=== PATIENT | male | born 1970 | race Two or more races ===

== ENCOUNTER 2023-01-24 12:41 | Emergency (ER) | payer OTHER ==
[2023-01-24 13:30] VITALS: BP 124/91; PULSE 81; RESP 16; TEMP 97.5; BMI 33.9
== END 2023-01-24 18:40 | disposition left against medical advice (07) ==
LOC: JER 12:41
DX: R10.33 Periumbilical pain (principal)
CPT/HCPCS: 99281-25

== ENCOUNTER 2023-07-08 08:30 | Emergency (ER) | payer OTHER ==
[2023-07-08 08:35] VITALS: BP 124/80; PULSE 63; RESP 18; TEMP 97.8; BMI 38.6
[2023-07-08] MEDS ORDERED: ACETAMINOPHEN 1000 MG/100 ML BAG IVPB ONE (09:01)
[2023-07-08 10:15] LABS: BASO % 0.3 % (0-2.0); EOS % 3.1 % (0-4.5); HEMATOCRIT 45.7 % (35.4-49); HEMOGLOBIN 15.7 GM/dL (11.7-16.9); LYMPH % 29.8 % (8-40); MCH 28.7 pg (25.7-33.7); MCHC 34.3 g/dl (32.0-35.9); MEAN CELL VOLUME 83.8 fl (80-96); MEAN PLT VOLUME 9.5 fl (7.5-11.1); MONO % 7.4 % (3.8-10.2); NEUT % 59.4 % (42.8-82.8); PLATELET COUNT 208 10^3/uL (134-434); RBC 5.46 M/mm3 (4.00-5.60); RDW 13.5 % (11.9-15.9); WHITE BLOOD COUNT 6.6 K/mm3 (4.0-10.0)
[2023-07-08 10:30] LABS: INR 1.04 (0.83-1.09); PROTHROMBIN TIME (PATIENT) 12.1 SEC (9.7-13.0)
[2023-07-08 10:33] LABS: ACTIVATED PTT 31.1 SECONDS (25.2-36.5)
[2023-07-08 10:40] LABS: POTASSIUM 4.6 mmol/L (3.5-5.1)
[2023-07-08 11:13] LABS: ALBUMIN 3.3 g/dl (3.4-5.0); BILIRUBIN,TOTAL 0.4 mg/dL (0.2-1); BLOOD UREA NITROGEN 8.9 mg/dL (7-18); CALCIUM 8.3 mg/dL (8.5-10.1); CREATININE 0.7 mg/dL (0.55-1.3); TOT PROT 6.9 g/dl (6.4-8.2)
== END 2023-07-08 13:55 | disposition home or self-care (01) ==
LOC: JER 08:30
DX: R10.84 Generalized abdominal pain (principal); R11.2 Nausea with vomiting, unspecified; K42.9 Umbilical hernia without obstruction or gangrene
CPT/HCPCS: 36415; 74177-TC; 80053; 83605; 85025; 85610; 85730; 86850; 86900; 86901; 93005; 93010; 99284-25; Q9967

== ENCOUNTER 2023-07-25 03:59 | Day surgery (SDC) | payer OTHER ==
[2023-07-22 09:30] VITALS: BMI 38.7
[2023-07-25] MEDS ORDERED: BUPIVACAINE HCL/PF 0.5% (5MG/ML) 10 ML VIAL ONE (14:45)
[2023-07-25] MEDS ORDERED: LIDOCAINE HCL/PF 2% SDV 5ML VIAL ONE (14:55)
[2023-07-25] MEDS ORDERED: MIDAZOLAM HCL 2 MG/2 ML SINGLE DOSE VIAL ONE (14:55)
[2023-07-25] MEDS ORDERED: PROPOFOL 20 ML ONE (14:55)
[2023-07-25] MEDS ORDERED: SUCCINYLCHOLINE CHLORIDE 200 MG/10 ML SYRINGE ONE (14:55)
[2023-07-25] MEDS ORDERED: ROCURONIUM BROMIDE 50 MG/5 ML SYRINGE ONE (14:55)
[2023-07-25] MEDS ORDERED: ceFAZolin SODIUM 1 GM VIAL ONE (15:38)
[2023-07-25] MEDS ORDERED: DEXAMETHASONE SOD PHOSPHATE 4 MG/1 ML VIAL ONE (15:38)
[2023-07-25] MEDS ORDERED: ceFAZolin SODIUM 1 GM VIAL IVPB ONE (15:40)
[2023-07-25] MEDS ORDERED: LIDOCAINE HCL 1%, 10 MG/ML (20ML VIAL) INF ONE ×2 (15:49)
[2023-07-25] MEDS ORDERED: BUPIVACAINE HCL/PF 0.5% (5 MG/ML) 30 ML VIAL IJ ONE ×2 (15:50)
[2023-07-25] MEDS ORDERED: GLYCOPYRROLATE 0.2 MG/1 ML VIAL ONE (16:08)
[2023-07-25] MEDS ORDERED: NEOSTIGMINE METHYLSULFATE 0.5 MG/1 ML - 10 ML MDV ONE (16:08)
[2023-07-25] MEDS ORDERED: KETOROLAC TROMETHAMINE 30 MG/1 ML VIAL ONE (16:08)
[2023-07-25] MEDS ORDERED: ONDANSETRON 4 MG/2 ML VIAL ONE (16:08)
[2023-07-25] MEDS ORDERED: PROMETHAZINE HCL 25 MG/1 ML VIAL IVPB PRN (17:03)
[2023-07-25] MEDS ORDERED: ACETAMINOPHEN 1000 MG/100 ML BAG IVPB ONE (17:03)
[2023-07-25] MEDS ORDERED: ONDANSETRON 4 MG/2 ML VIAL IVPUSH PRN (17:03)
[2023-07-25] MEDS ORDERED: oxyCODONE HCL 5 MG TABLET PO PRN ×2 (17:03)
[2023-07-25] MEDS ORDERED: LACTATED RINGERS SOLUTION 1,000 ML IV SCH (17:15)
[2023-07-25] MEDS ORDERED: ACETAMINOPHEN INJECTION 100 ML IVPB ONE (17:25)
[2023-07-25 19:49] VITALS: BP 112/65; PULSE 65; RESP 20; TEMP 97.3
== END 2023-07-25 19:45 | disposition home or self-care (01) ==
LOC: JASU-SURG 03:59
PROVIDERS: ATTEND Surgery
PROC: 0WQF0ZZ Repair Abdominal Wall, Open Approach (ICD-10-PCS; principal; 2023-07-25 12:30)
DX: K42.9 Umbilical hernia without obstruction or gangrene (principal)
CPT/HCPCS: 88305-TC; 94760